=== PATIENT | male | born 1975 | race African-American/Black ===

== ENCOUNTER 2019-08-09 12:37 | Emergency (ER) | payer OTHER ==
[~2019-08-09] VITALS: Ht 175.3 cm; Wt 72.6 kg
[2019-08-09 12:59] VITALS: BP 102/68
--- NOTE | 2019-08-09 13:04 | ER.PDOC ---
General Chief Complaint: Flank Pain Stated Complaint: KIDNEY PAIN Time seen by MD: 13:00 Source: patient Exam Limitations: no limitations History of Present Illness Initial Comments Pt states he has dysuria and flank pain he has had recent exposure STD from unprotected sex Timing/Duration: 4-6 hours, 24 hours Severity/Quality: moderate Radiation: flank (left flank pain ) Associated Symptoms: back pain Vital Signs First Vital Signs Date Time Temp Pulse Resp B/P (MAP) Pulse Ox O2 Delivery O2 Flow Rate FiO2 08/09/19 12:45 98.0 83 20 98 08/09/19 12:59 102/68 (79) Last Vital Signs Date Time Temp Pulse Resp B/P (MAP) Pulse Ox O2 Delivery O2 Flow Rate FiO2 08/09/19 12:59 98.0 83 20 102/68 (79) 98 Past Medical History Medical History: no pertinent history Surgical History: no surgical history Social History Drug Use: marijuana Constitutional: no symptoms reported EENTM: no symptoms reported Respiratory: no symptoms reported Cardiovascular: no symptoms reported Gastrointestinal: no symptoms reported Genitourinary: burning, dysuria, discharge, flank pain Musculoskeletal: no symptoms reported Skin: no symptoms reported All Other Systems: Reviewed and Negative Physical Exam General Appearance: No Apparent Distress, WD/WN HEENT: PERRL/EOMI, Normal ENT Inspection Neck: Non-Tender, Full Range of Motion Respiratory: chest non-tender, lungs clear, normal breath sounds, no respiratory distress Cardiovascular: Regular Rate, Rhythm, No Edema Gastrointestinal: Normal Bowel Sounds Male Genitalia: Erythema Back: Normal Inspection Extremities: Normal Range of Motion Skin: Normal Color, Warm/Dry Lymphatic: No Adenopathy Results/Orders Results/Orders Orders - LEISA MACKENZIE THERMOMETER TESTER Urinalysis (08/09/19 13:16) Ceftriaxone Sodium (Rocephin) (08/09/19 13:33) Azithromycin (Zithromax) (08/09/19 13:33) Chlam/Gc/Trich (08/09/19 13:46) Vital Signs Date Time Temp Pulse Resp B/P (MAP) Pulse Ox O2 Delivery O2 Flow Rate FiO2 08/09/19 12:59 98.0 83 20 102/68 (79) 98 08/09/19 12:45 98.0 83 20 98 Laboratory Tests Test 08/09/19 13:00 Urine Collection Type VOID Urine Color YELLOW (YELLOW) Urine Appearance CLEAR (CLEAR) Urine Bilirubin NEGATIVE MG/DL (NEGATIVE) Urine Ketones 5 mg/dL (NEGATIVE) H Urine Specific [place] 1.025 (1.005-1.035) Urine pH 5 (5.0-6.0) Urine Protein NEGATIVE (NEGATIVE) Urine Urobilinogen NORMAL (NEGATIVE) Urine Nitrate NEGATIVE (NEGATAIVE) Urine Leukocyte Esterase NEGATIVE (NEGATIVE) Urine Blood NEGATIVE (NEGATIVE) Urine Glucose NORMAL (NEGATIVE) Course Duration or Total Time Spent w: 15 minutes Vitals & review Data Vital Sign - Last 24 Hours 08/09/19 08/09/19 12:45 12:59 Temp 98.0 98.0 Pulse 83 83 Resp 20 20 B/P (MAP) 102/68 (79) Pulse Ox 98 98 Laboratory Tests Test 08/09/19 13:00 Urine Collection Type VOID Urine Color YELLOW Urine Appearance CLEAR Urine Bilirubin NEGATIVE MG/DL Urine Ketones 5 mg/dL Urine Specific [place] 1.025 Urine pH 5 Urine Protein NEGATIVE Urine Urobilinogen NORMAL Urine Nitrate NEGATIVE Urine Leukocyte Esterase NEGATIVE Urine Blood NEGATIVE Urine Glucose NORMAL O2 Sat by Pulse Oximetry: 98 Departure Time of Disposition: 14:04 Disposition: 01 HOME, SELF-CARE Impression: Primary Impression: STD exposure Additional Impression: STD (male) Condition: Stable Referrals: PCP,UNKNOWN (PCP) PRIMARY CARE PROVIDER Additional Instructions: Return to ER if Symptoms worsen Condoms with any sexual partners for next 4 weeks Duration or Time Spent with Pa: 20 minutes Problem Qualifiers LEISA MACKENZIE NP Aug 09, 2019 13:04
[2019-08-09] MEDS ORDERED: ROCEPHIN IM STA (13:33)
[2019-08-09] MEDS ORDERED: ZITHROMAX PO STA (13:33)
[2019-08-09 13:39] LABS: BILIRUBIN,URINE NEGATIVE (NEGATIVE); UROBILINOGEN,URINE NORMAL (NEGATIVE)
[2019-08-09 13:41] LABS: APPEARANCE,URINE CLEAR (CLEAR); UA COLOR YELLOW (YELLOW)
[2019-08-09] MEDS ORDERED: LIDOCAINE 1% VIAL ONE (13:49)
[2019-08-09] MEDS ORDERED: ROCEPHIN ONE (13:49)
[2019-08-09] MEDS ORDERED: ZITHROMAX ONE (13:50)
== END 2019-08-09 14:28 | disposition home or self-care (01) ==
LOC: ER 12:37
DX: A64 Unspecified sexually transmitted disease (principal); F12.90 Cannabis use, unspecified, uncomplicated
CPT/HCPCS: 81002; 99283; J0696; J2001; Q0144